=== PATIENT | female | born 1980 | race Caucasian/White ===

== ENCOUNTER → 2017-12-07 09:38 | Outpatient (CLI) | payer MEDICAID, SELFPAY ==
--- NOTE | 2017-12-07 09:40 | RAD_ITS ---
STUDY: X-RAY CHEST REASON FOR EXAM: Female, 37 years old. History of prior right lower lobe pneumonia. Decreased right lung sounds. TECHNIQUE: PA and lateral views of the chest. COMPARISON: None. FINDINGS: Blunting of the right costophrenic angle with increased markings at the right lung base suggestive of either residual infiltrate and/or atelectasis. There is no demonstrated pleural abnormality. Normal size heart. Normal mediastinum and radha. Normal visualized pulmonary arteries. Normal visualized aortic arch and descending thoracic aorta. There are degenerative changes of the visualized thoracic spine. Normal visualized ribs, clavicles, and shoulders. There is no demonstrated abnormality of the visualized soft tissue structures of the upper abdomen. RAD/Chest PA and Lateral IMPRESSION: Blunting of the right costophrenic angle with underlying atelectasis and/or residual infiltrate. Electronically Signed: Beck Avalos MD at 14:06 EST Tel [phone], Service support ,
== END ==
PROVIDERS: Family Provider Internal Medicine; PCP Internal Medicine; Visit Provider Nurse Practitioner Family
DX: R09.89 Other specified symptoms and signs involving the circulatory and respiratory systems (principal)
CPT/HCPCS: 71046

== ENCOUNTER → 2018-03-26 08:40 | Outpatient (CLI) | payer MEDICAID, SELFPAY ==
--- NOTE | 2018-03-26 08:42 | RAD_ITS ---
STUDY: X-RAY CHEST REASON FOR EXAM: Female, 37 years old. Productive cough. TECHNIQUE: PA and lateral views of the chest. COMPARISON: Comparison is made with prior study dated December 07, 2017. FINDINGS: Mild elevation of the right hemidiaphragm. Stable blunting of the right costophrenic angle. No new infiltrate is seen. There is no demonstrated pleural abnormality. Normal size heart. Normal mediastinum and radha. Normal visualized pulmonary arteries. Normal visualized aortic arch and descending thoracic aorta. There are degenerative changes of the visualized thoracic spine. Normal visualized ribs, clavicles, and shoulders. There is no demonstrated abnormality of the visualized soft tissue structures of the upper abdomen. RAD/Chest PA and Lateral IMPRESSION: Stable elevation of the right hemidiaphragm with blunting of the right costophrenic angle. Electronically Signed: Beck Avalos MD at 8:34 EDT Tel [phone], Service support ,
== END ==
DX: R05 Cough (principal)
CPT/HCPCS: 71046